=== PATIENT | male | born 1965 | race Caucasian/White ===

== ENCOUNTER 2018-11-29 04:37 | Emergency (ER) | payer MEDICARE, MEDICAID | END 2018-11-29 07:24 | disposition home or self-care (01) | LOC: ED 04:37 ==

== ENCOUNTER 2019-06-03 10:46 | Observation (INO) | payer MEDICARE ==
--- NOTE | 2019-06-03 10:51 | ERPHSYRPT ---
- History of Present Illness Time Seen by Provider: 06/03/19 10:50 Historian: patient, family Exam Limitations: no limitations Physician History: This is a 53-year-old diabetic male with hypertension who has coronary artery disease, has had a myocardial infarction, has had a coronary artery bypass graft and pulmonary embolism and is taking Plavix, who presents with chronic intermittent epigastric pain for over a year. Patient smokes cigarettes daily. Patient has had a cholecystectomy. He has had no history of peptic ulcer disease. Patient denies consumption of fatty greasy spicy foods. Patient has been seen by a mounter automatic within the last few months. Uses nitroglycerin on occasion and use that today. Patient does take Protonix daily. Patient does have a history of bipolar disorder and depression. Patient uses marijuana daily. Patient is here in the emergency room today because he states that he began vomiting with this chronic intermittent epigastric pain. The pain is nonradiating. The vomitus had blood in it per his report Timing/Duration: other (Chronic, intermittent for over a year) Activities at Onset: none Quality: burning, sharpness, stabbing Abdominal Pain Onset Location: epigastric Pain Radiation: no radiation Severity of Pain-Max: moderate Severity of Pain-Current: moderate Modifying Factors: Improves With: vomiting Associated Symptoms: vomiting Previous symptoms: same symptoms as today, recently seen, recently treated Allergies/Adverse Reactions: citalopram [From Celexa] Allergy (Severe, Verified 06/03/19 10:50) Home Medications: Clopidogrel Bisulfate [Plavix] 75 mg PO DAILY 11/29/18 [History] Dulaglutide [Trulicity] 1 dose SQ WEEKLY 11/29/18 [History] Enalapril Maleate 1 tab PO BID 11/29/18 [History] Gabapentin 1 tab PO QID 11/29/18 [History] Nitroglycerin 1 tab SL UD 11/29/18 [History] Pramipexole Di-HCl 0.5 mg [Mirapex 0.5 MG Tablet] 0.5 mg PO HS 11/29/18 [ History] Aspirin 81 gm Chew [Baby Aspirin 81 mg Chew] 81 mg PO DAILY 06/03/19 [ History] Isosorbide Mononitrate [Isosorbide Mononitrate ER] 60 mg PO DAILY 06/03/19 [ History] Rosuvastatin Calcium [Crestor] 20 mg PO DAILY 06/03/19 [History] carvediloL [Carvedilol] 25 mg PO BIDWM 06/03/19 [History] Hx Tetanus, Diphtheria Vaccination/Date Given: No Hx Influenza Vaccination/Date Given: No Hx Pneumococcal Vaccination/Date Given: No - Review of Systems Constitutional: No Symptoms Eyes: No Symptoms Ears, Nose, & Throat: No Symptoms Respiratory: No Symptoms Cardiac: No Symptoms Abdominal/Gastrointestinal: Abdominal Pain (Epigastric), Vomiting Genitourinary Symptoms: No Symptoms Musculoskeletal: No Symptoms Skin: No Symptoms Neurological: No Symptoms Psychological: Anxiety Endocrine: No Symptoms Hematologic/Lymphatic: No Symptoms Immunological/Allergic: No Symptoms All Other Systems: Reviewed and Negative - Past Medical History Pertinent Past Medical History: Yes (Cardiac ) Neurological History: Peripheral Neuropathy, Seizures ENT History: Cataracts Cardiac History: Coronary Artery Disease, Hypertension, Myocardial Infarction ( [place]) Respiratory History: Asthma, COPD, Pulmonary Embolism, Sleep Apnea, Tuberculosis Endocrine Medical History: Diabetes Type II Musculoskeletal History: Other GI Medical History: No Pertinent History History: Renal Disease Psycho-Social History: Bipolar, Depression Male Reproductive Disorders: No Pertinent History Other Medical History: sternum removed after CABG due to infection - Past Surgical History Past Surgical History: Yes Neuro Surgical History: No Pertinent History Cardiac: CABG (11 years ago) Respiratory: No Pertinent History Gastrointestinal: Cholecystectomy Genitourinary: No Pertinent History Musculoskeletal: Other Male Surgical History: No Pertinent History Other Surgical History: sternum removed after CABG due to infection - Social History Smoking Status: Current every day smoker How long have you smoked: 35 Exposure to second hand smoke: Yes Drug Use: marijuana Patient Lives Alone: No - Nursing Vital Signs Nursing Vital Signs: Initial Vital Signs Temperature 98.0 F 06/03/19 10:52 Pulse Rate 89 06/03/19 10:52 Respiratory Rate 20 06/03/19 10:52 Blood Pressure 225/125 06/03/19 10:52 O2 Sat by Pulse Oximetry 99 06/03/19 10:52 Pain Scale Pain Intensity 8 - Physical Exam General Appearance: no apparent distress, mild distress, alert, anxiety Eye Exam: PERRL/EOMI, eyes nml inspection Ears, Nose, Throat Exam: normal ENT inspection, moist mucous membranes Neck Exam: normal inspection, non-tender, supple, full range of motion Respiratory Exam: normal breath sounds, lungs clear, airway intact, No chest tenderness, No respiratory distress Cardiovascular Exam: regular rate/rhythm, normal heart sounds, normal peripheral pulses Gastrointestinal/Abdomen Exam: soft, normal bowel sounds, tenderness (Gastric area.), guarding, No rebound Rectal Exam: not done Back Exam: normal inspection, normal range of motion, No CVA tenderness, No vertebral tenderness Extremity Exam: normal inspection, normal range of motion, pelvis stable Neurologic Exam: alert, oriented x 3, cooperative, land management forester II-XII nml as tested Skin Exam: normal color, warm, dry Lymphatic Exam: No adenopathy SpO2 Interpretation: normal O2 Delivery: Room Air - Course Nursing assessment & vital signs reviewed: Yes EKG Interpreted by Me: RATE (79), Sinus Rhythm, Left [place] Deviation, NORMAL INTERVALS, NORMAL QRS, Other (No change from comparison EKG dated 11/29/2018) Ordered Tests: Active Orders 24 hr Category Date Time Status Hatch Supervisor STAT Care 06/03/19 11:15 Active Clean Catch Urine Specimen STAT Care 06/03/19 11:58 Active EKG-ER Only STAT Care 06/03/19 11:14 Active IV Insertion STAT Care 06/03/19 11:14 Active Pulse Oximetry (ED) STAT Care 06/03/19 11:14 Active ABDOMEN AND PELVIS W/0 CONTRAS [CT] Stat Exams 06/03/19 11:18 Completed CHEST WITH CONTRAST [CT] Stat Exams 06/03/19 11:46 Completed CBC W DIFF Stat Lab 06/03/19 11:14 Completed CMP Stat Lab 06/03/19 11:14 Completed D-DIMER QUANTITATIVE Stat Lab 06/03/19 11:14 Completed NT PRO BNP Stat Lab 06/03/19 11:14 Completed TROPONIN Q3H Lab 06/03/19 11:14 Completed TROPONIN Q3H Lab 06/03/19 14:15 Completed TROPONIN Q3H Lab 06/03/19 17:15 Ordered TROPONIN Q3H Lab 06/03/19 20:15 Ordered TROPONIN Q3H Lab 06/03/19 23:15 Ordered Urine Triage Profile Stat Lab 06/03/19 12:51 Completed Transfer Order Routine Transfer 06/03/19 Ordered Medication Summary Discontinued Medications Generic Name Dose Route Start Last Admin Trade Name Freq PRN Reason Stop Dose Admin Al Hydrox/Mg Hydrox/Simethicone Confirm 06/03/19 14:34 Maalox Es 30 Ml Unit Dose Administered 06/03/19 14:35 Dose 30 ml .ROUTE .STK-MED ONE Enoxaparin Sodium 90 mg 06/03/19 15:41 Enoxaparin Sodium 1 mg/kg (90 mg) 06/03/19 15:42 SQ STAT ONE Lidocaine HCl Confirm 06/03/19 14:34 Xylocaine Hcl Viscous * Administered 06/03/19 14:35 Dose 15 ml .ROUTE .STK-MED ONE Magnesium Hydroxide 45 ml 06/03/19 14:27 06/03/19 14:38 Gi Cocktail 45 Ml (Maalox/Lidocaine) PO 06/03/19 14:28 45 ml STAT ONE Administration Morphine Sulfate 6 mg 06/03/19 11:14 06/03/19 11:30 Morphine Sulfate 10 Mg/Ml IV 06/03/19 11:15 6 mg STAT ONE Administration Morphine Sulfate Confirm 06/03/19 11:26 Morphine Sulfate 10 Mg/Ml Administered 06/03/19 11:27 Dose 10 mg .ROUTE .STK-MED ONE Morphine Sulfate Confirm 06/03/19 11:34 Morphine Sulfate 10 Mg/Ml Administered 06/03/19 11:35 Dose 10 mg .ROUTE .STK-MED ONE Morphine Sulfate 4 mg 06/03/19 13:43 06/03/19 13:48 Morphine Sulfate 4 Mg Inj IV 06/03/19 13:44 4 mg STAT ONE Administration Morphine Sulfate Confirm 06/03/19 13:46 Morphine Sulfate 4 Mg Inj Administered 06/03/19 13:47 Dose 4 mg .ROUTE .STK-MED ONE Ondansetron HCl 4 mg 06/03/19 11:14 06/03/19 11:29 Zofran 4 Mg/2 Ml Vial IV 06/03/19 11:15 4 mg STAT ONE Administration Ondansetron HCl Confirm 06/03/19 11:26 Zofran 4 Mg/2 Ml Vial Administered 06/03/19 11:27 Dose 4 mg .ROUTE .STK-MED ONE Pantoprazole Sodium 40 mg 06/03/19 14:26 06/03/19 14:38 Protonix 40 Mg Iv IV 06/03/19 14:27 40 mg STAT ONE Administration Pantoprazole Sodium Confirm 06/03/19 14:33 Protonix 40 Mg Iv Administered 06/03/19 14:34 Dose 40 mg IV .HangIt-MED ONE Lab/Rad Data: Laboratory Result Diagrams 06/03/19 11:14 06/03/19 11:14 Laboratory Results 06/03/19 06/03/19 06/03/19 Range/Units 14:15 12:51 11:14 WBC (4.0-10.5) K/mm3 RBC (4.1-5.6) M/mm3 Hgb (12.5-18.0) gm/dl Hct (42-50) % MCV (78-100) fl MCH (26-32) pg MCHC (32-36) g/dl RDW (11.5-14.0) % Plt Count (150-450) K/mm3 MPV (7.5-11.0) fl Gran % (36.0-66.0) % Eos # (Auto) (0-0.5) Absolute Lymphs (auto) (1.0-4.6) Absolute Monos (auto) (0.0-1.3) Lymphocytes % (24.0-44.0) % Monocytes % (0.0-12.0) % Eosinophils % (0.00-5.0) % Basophils % (0.0-0.4) % Absolute Granulocytes (1.4-6.9) Basophils # (0-0.4) D-Dimer (215-500) ng/mL Sodium (137-145) mmol/L Potassium (3.5-5.1) mmol/L Chloride (98-107) mmol/L Carbon Dioxide (22-30) mmol/L Anion Gap (5-15) MEQ/L BUN (9-20) mg/dL Creatinine (0.66-1.25) mg/dL Estimated GFR ML/MIN Glucose (74-106) mg/dL Calcium (8.4-10.2) mg/dL Total Bilirubin (0.2-1.3) mg/dL AST (17-59) U/L ALT (0-50) U/L Alkaline Phosphatase (38-126) U/L Troponin I < 0.012 < 0.012 (0.000-0.034) ng/mL NT-Pro-B Natriuret Pep (0-900) pg/mL Serum Total Protein (6.3-8.2) g/dL Albumin (3.5-5.0) g/dL Urine Opiates Level NEGATIVE (NEGATIVE) Ur Methadone NEGATIVE (NEGATIVE) Urine Barbiturates NEGATIVE (NEGATIVE) Ur Phencyclidine (PCP) NEGATIVE (NEGATIVE) Urine Amphetamine NEGATIVE (NEGATIVE) U Benzodiazepine Level NEGATIVE (NEGATIVE) Urine Cocaine NEGATIVE (NEGATIVE) Urine Marijuana (THC) POSITIVE (NEGATIVE) 06/03/19 06/03/19 06/03/19 Range/Units 11:14 11:14 11:14 WBC 9.6 (4.0-10.5) K/mm3 RBC 5.77 H (4.1-5.6) M/mm3 Hgb 16.0 (12.5-18.0) gm/dl Hct 47.4 (42-50) % MCV 82.1 (78-100) fl MCH 27.7 (26-32) pg MCHC 33.8 (32-36) g/dl RDW 14.3 H (11.5-14.0) % Plt Count 236 (150-450) K/mm3 MPV 10.6 (7.5-11.0) fl Gran % 72.9 H (36.0-66.0) % Eos # (Auto) 0.10 (0-0.5) Absolute Lymphs (auto) 2.03 (1.0-4.6) Absolute Monos (auto) 0.45 (0.0-1.3) Lymphocytes % 21.1 L (24.0-44.0) % Monocytes % 4.7 (0.0-12.0) % Eosinophils % 1.0 (0.00-5.0) % Basophils % 0.3 (0.0-0.4) % Absolute Granulocytes 7.03 H (1.4-6.9) Basophils # 0.03 (0-0.4) D-Dimer 1629 H* (215-500) ng/mL Sodium 138 (137-145) mmol/L Potassium 3.9 (3.5-5.1) mmol/L Chloride 103 (98-107) mmol/L Carbon Dioxide 26 (22-30) mmol/L Anion Gap 13.4 (5-15) MEQ/L BUN 15 (9-20) mg/dL Creatinine 1.46 H (0.66-1.25) mg/dL Estimated GFR 54.1 ML/MIN Glucose 223 H (74-106) mg/dL Calcium 9.8 (8.4-10.2) mg/dL Total Bilirubin 1.10 (0.2-1.3) mg/dL AST 25 (17-59) U/L ALT 17 (0-50) U/L Alkaline Phosphatase 99 (38-126) U/L Troponin I (0.000-0.034) ng/mL NT-Pro-B Natriuret Pep 3760 H (0-900) pg/mL Serum Total Protein 8.5 H (6.3-8.2) g/dL Albumin 4.5 (3.5-5.0) g/dL Urine Opiates Level (NEGATIVE) Ur Methadone (NEGATIVE) Urine Barbiturates (NEGATIVE) Ur Phencyclidine (PCP) (NEGATIVE) Urine Amphetamine (NEGATIVE) U Benzodiazepine Level (NEGATIVE) Urine Cocaine (NEGATIVE) Urine Marijuana (THC) (NEGATIVE) - Progress Progress: improved Progress Note: 06/03/19 15:50 The CAT scan of the abdomen does not reveal any acute intra-abdominal process. The CAT scan of the chest with contrast reveals bilateral distal branches of the descending lower lobe arteries with subtle filling defects. This is suggestive of pulmonary emboli. Medical decision making: I spoke with Dr. Gtz at 1420 and reviewed the patient's history, condition, laboratory data, and x-ray findings as well as EKG findings. I then discussed the pulmonary CAT scan findings with Dr. RADHA Jay at 1500. I received the CAT scan with contrast report from [place] dated February 2019. At that time there was no evidence of any pulmonary emboli. Today's CAT scan of the chest with contrast shows new peripheral/distal filling defects. Patient is only on Plavix and aspirin. Dr. Jay states the patient should be observed overnight, given Lovenox and this start on Eliquis 10 mg orally twice a day. I then called back Dr. Infante who agreed with this plan and will place the patient in observation for further management. Discussed with : Laura Rob Counseled pt/family regarding: lab results, diagnosis, need for follow-up, rad results - Departure Departure Disposition: Observation Clinical Impression: Pulmonary emboli, Epigastric abdominal pain Condition: Stable Critical Care Time: Yes Critical Care Time(excluding separately billable procedures): Critical 30-74 mins Referrals: GUSTABO AMADO [Primary Care Provider] - Forms: Providers Accepting New PT'S
[2019-06-03] MEDS ORDERED: Zofran 4 MG/2 ML VIAL IV ONE (11:14)
[2019-06-03] MEDS ORDERED: MORPHINE SULFATE 10 MG/ML IV ONE (11:14)
[2019-06-03 11:26] LABS: Absolute Neutrophil Ct (ANC) 7.03 (1.4-6.9); BASOPHIL % 0.3 % (0.0-0.4); Basophil (Absolute #) 0.03 (0-0.4); Hematocrit 47.4 % (42-50); Lymphocyte (Absolute #) 2.03 (1.0-4.6); Lymphocytes % 21.1 % (24.0-44.0); Mean Cell Volume 82.1 fl (78-100); Mean Corpuscular Hemoglobin 27.7 pg (26-32); Mean Corpuscular Hgb Concent. 33.8 g/dl (32-36); Mean Platelet Volume 10.6 fl (7.5-11.0); Monocyte (Absolute #) 0.45 (0.0-1.3); Monocytes % 4.7 % (0.0-12.0); Neutrophil % 72.9 % (36.0-66.0); Platelet Count 236 K/mm3 (150-450); Red Blood Count 5.77 M/mm3 (4.1-5.6); Red Cell Distribution Width 14.3 % (11.5-14.0); White Blood Count 9.6 K/mm3 (4.0-10.5)
[2019-06-03] MEDS ORDERED: Zofran 4 MG/2 ML VIAL ONE (11:26)
[2019-06-03] MEDS ORDERED: MORPHINE SULFATE 10 MG/ML ONE ×2 (11:26→11:34)
[2019-06-03 11:38] LABS: ALBUMIN 4.5 g/dL (3.5-5.0); ANION GAP 13.4 MEQ/L (5-15); BILIRUBIN,TOTAL 1.1 mg/dL (0.2-1.3); Calcium 9.8 mg/dL (8.4-10.2); Creatinine 1 1.46 mg/dL (0.66-1.25); Potassium 3.9 mmol/L (3.5-5.1); Total Protein 8.5 g/dL (6.3-8.2)
[2019-06-03 13:19] LABS: Amphetamine,Urine NEGATIVE (NEGATIVE); Barbiturate,Urine NEGATIVE (NEGATIVE); Benzodiazepine,Urine NEGATIVE (NEGATIVE); Cocaine,Urine NEGATIVE (NEGATIVE); Methadone,Urine NEGATIVE (NEGATIVE); Opiate,Urine NEGATIVE (NEGATIVE); PCP,Urine NEGATIVE (NEGATIVE); THC,Urine POSITIVE (NEGATIVE)
--- NOTE | 2019-06-03 13:19 | XRAY ---
Exam: CT of the chest with IV contrast from 06/03/2019. Total DLP: 1221.93 mGy-cm. Comparison: AP upright portable chest film from 11/29/2018. Indication: Epigastric abdominal pain, abnormal d-dimer (1629). Hematemesis. History of stage III renal failure. Technique: Post-IV contrast axial images were obtained through the chest during automated injection of 100 cc of Isovue-370 contrast material using the PE protocol. Reconstructed coronal and sagittal images were created and reviewed. Multiple surgical clips and coronary artery bypass markers with a couple upper sternal wires are noted from prior CABG. On the initial thin section axial images #85 through #90, I note some subtle defects within distal branches of both lower lobe pulmonary arteries. For example, see axial image #90 on the right and #89 on the left. These are suggestive of tiny pulmonary emboli. The more central branching pulmonary arteries, main pulmonary trunk, and right and left main pulmonary artery are well opacified and reveal no other filling defects. The thoracic aorta appears of normal diameter and reveals no aneurysm or aortic dissection. Moderate vascular calcification is seen within the thoracic aorta. The heart size is normal. I believe there is some mild left ventricular wall hypertrophy. No pericardial effusion is seen. Left coronary vascular calcification is seen. No abnormal mass or lymphadenopathy is seen within the merlene or mediastinal structures. The lungs reveal no infiltrates, abnormal soft tissue lung nodularity, pneumothorax, or pleural fluid. There is a small bulla within the posterior left lung base. A calcified granuloma is seen within the left lower lobe. The visualized adrenal glands appear unremarkable. A couple surgical clips are seen within the right upper quadrant, apparently due to prior cholecystectomy. Visualized left kidney reveals asymmetric atrophy as compared to the right kidney. Moderate atherosclerotic vascular calcification and plaque formation is seen within the proximal abdominal aorta. No aneurysm is seen at this level. The skeleton reveals no acute fracture or aggressive bone lesion. Mild degenerative spurring is seen within the mid and lower thoracic spine. Impression: 1. Within distal branches of the descending lower lobe pulmonary arteries bilaterally, I see subtle filling defects suggestive of pulmonary emboli. For example, see axial images #85 through #90. No other pulmonary emboli are seen. 2. Status post CABG. I believe there is some left ventricular wall hypertrophy as well. 3. I note atrophy of the partially seen left kidney. 4. Moderate atherosclerotic vascular calcification and plaque formation is seen within the visualized thoracolumbar abdominal aorta. No aneurysm or dissection is seen. 5. No active lung disease is seen.
[2019-06-03] MEDS ORDERED: MORPHINE SULFATE 4 MG INJ IV ONE (13:43)
[2019-06-03] MEDS ORDERED: MORPHINE SULFATE 4 MG INJ ONE (13:46)
--- NOTE | 2019-06-03 14:00 | XRAY ---
Exam: CT of the abdomen and pelvis without IV contrast from 06/03/2019. CTDI: 12.14 mGy. Comparison: None. Indication: Epigastric abdominal pain, hematemesis. Stage III renal failure, trouble urinating, mid to lower abdominal pain, nausea/vomiting. Technique: Non-IV contrast axial images were obtained through the abdomen and pelvis. Reconstructed coronal and sagittal images were created and reviewed. No CT oral contrast was given. Findings: The lung bases appear clear. The liver and spleen appear of unremarkable size. No intrahepatic biliary duct distention is seen. A couple low-attenuation densities within the upper lateral aspect of the right lobe of the liver on axial image #11 and #12 and a tiny low-attenuation density within the inferior portion of the right lobe of the liver on axial image #31 are seen.. These are too small to characterize, but may represent small hepatic cysts. Surgical clips consistent with prior cholecystectomy are seen within the right upper quadrant. The pancreas and adrenal glands appear unremarkable. Some atherosclerotic vascular calcification is seen within the renal arteries bilaterally. There is a small right renal cortex calcification on axial image #35. There is generalized atrophy of the left kidney as compared to the right kidney. No renal mass or hydronephrosis is seen. The ureters appear of normal diameter and reveal no ureterolith. Atherosclerotic vascular calcification is seen within the abdominal aorta. No abdominal aortic aneurysm is seen. However, I note some enlargement of the distal right common iliac artery which measures up to 2 cm in diameter on axial image #58 and less pronounced mild dilation of the distal left common iliac artery which measures up to 1.6 cm in diameter on axial image #56. Other iliac artery and common femoral artery vascular calcification is seen. No abnormal retroperitoneal lymphadenopathy is seen. The anterior abdominal wall appears intact. No free intraperitoneal air is seen. Scattered stool is seen throughout the colon. Some incidental diverticula are seen within the descending colon and sigmoid colon. No evidence of acute diverticulitis is seen. The appendix appears unremarkable. The urinary bladder is only minimally distended. No urinary bladder stone is seen. No enlarged pelvic lymph nodes or free intraperitoneal fluid is seen. The seminal vesicles appear unremarkable. The prostate gland does not appear enlarged. The skeleton reveals no acute fracture or aggressive bone lesion. Mild degenerative changes are seen at the L5-S1 facet joints. There is mild narrowing of the L5-S1 disc height. Mild lower anterior thoracic vertebral endplate spurring is seen. Impression: 1. There is moderate generalized left renal atrophy. No definite renal calculi or hydronephrosis is seen. 2. There is at least moderate atherosclerotic vascular calcification seen within the abdominal aorta and its branches. I see no abdominal aortic aneurysm. The distal abdominal aorta measures 2.5 cm in maximum diameter. However, I note bilateral distal common iliac artery aneurysms, larger on the right than left, as discussed above. No leak is seen. 3. Status post cholecystectomy. 4. 3 small low-attenuation densities are seen within the liver which are too small to characterize, but likely represent tiny hepatic cysts. 5. Minimal diverticulosis without evidence of diverticulitis is seen within the descending colon and sigmoid colon. Colonic stool retention is seen. 6. The gallbladder is surgically absent. The appendix appears normal.
[2019-06-03] MEDS ORDERED: PROTONIX 40 MG IV IV ONE ×2 (14:26→14:33)
[2019-06-03] MEDS ORDERED: GI COCKTAIL 45 ML (Maalox/Lidocaine) PO ONE (14:27)
[2019-06-03] MEDS ORDERED: MAALOX ES 30 ML UNIT DOSE ONE (14:34)
[2019-06-03] MEDS ORDERED: XYLOCAINE HCl Viscous ONE (14:34)
[2019-06-03] MEDS ORDERED: ENOXAPARIN SODIUM SQ ONE ×3 (15:41→16:15)
[2019-06-03] MEDS ORDERED: TYLENOL 325 MG PO PRN (16:28)
[2019-06-03] MEDS ORDERED: MORPHINE SULFATE 4 MG INJ IV PRN (16:28)
[2019-06-03] MEDS ORDERED: Sodium Chloride 0.9% 1000 ML 1,000 ML IV SCH (16:28)
[2019-06-03] MEDS ORDERED: Zofran 4 MG/2 ML VIAL IV PRN (16:28)
[2019-06-03] MEDS ORDERED: Carafate 1 GM PO SCH (16:30)
[2019-06-03 19:48] VITALS: BP 167/99; PULSE 83; O2SAT 96
[2019-06-04] MEDS ORDERED: PROTONIX 40 MG IV IV SCH (10:00)
[2019-06-04] MEDS ORDERED: ENOXAPARIN SODIUM SQ SCH (10:00)
== END 2019-06-03 19:15 | disposition left against medical advice (07) ==
LOC: ED 10:46 → MED SURG 16:23
PROVIDERS: ADMIT Family Medicine; ATTEND Family Medicine
DX: I26.99 Other pulmonary embolism without acute cor pulmonale (principal); R11.10 Vomiting, unspecified; R10.13 Epigastric pain; E11.9 Type 2 diabetes mellitus without complications; J44.9 Chronic obstructive pulmonary disease, unspecified; I10 Essential (primary) hypertension; I25.2 Old myocardial infarction; I25.10 Atherosclerotic heart disease of native coronary artery without angina pectoris; G47.30 Sleep apnea, unspecified; Z95.1 Presence of aortocoronary bypass graft; F17.210 Nicotine dependence, cigarettes, uncomplicated; Z79.899 Other long term (current) drug therapy; Z79.01 Long term (current) use of anticoagulants
CPT/HCPCS: 36000; 36415; 71260; 74176; 80053; 80307; 83036; 83880; 84484; 85025; 85379; 93005; 93041; 93268; 94760; 96372; 96374; 96375; 96376; 99284; 99291; G0378; J1650; J2270; J2405; A9270-GY